=== PATIENT | female | born 1985 | race Caucasian/White ===

== ENCOUNTER → 2016-09-14 | Outpatient (CLI) | payer BC ==
[~2016-09-14] MED LIST: IBUP600T26 PO; IBUP80TA PO; LORTTAB5 PO; ORTHTAB6 PO; PERCOCET PO; PRENTAB9 PO; ZOFR4TAB3 PO
[2016-09-14 08:27] LABS: BASO % 0.1 % (0.0-1.0); EOS # 0.1 K/mm3 (0.0-0.50); LARGE UNSTAINED CELL # 0.1 K/mm3 (0.0-0.4); LARGE UNSTAINED CELL % 1.5 % (0.0-4.0); LYMPH # 1.5 K/mm3 (1.5-6.5); MEAN CORPUSCULAR HEMOGLOBIN 30.8 pg (27.0-33.0); MEAN CORPUSCULAR HGB CONC 34.8 g/dl (32.0-36.5); MEAN CORPUSCULAR VOLUME 88.3 fl (80.0-96.0); MONO # 0.3 K/mm3 (0.0-0.8); MONO % 3.6 % (0.0-5.0); NEUTROPHILS % 71.8 % (36.0-66.0); PLATELET COUNT, AUTOMATED 175 k/mm3 (150-450); RED CELL DISTRIBUTION WIDTH 12.2 % (11.5-14.5); WHITE BLOOD COUNT 6.9 K/mm3 (4.0-10.0)
[2016-09-14 09:30] LABS: CONTROL LINE INT CTR LINE PRESENT; HIV SCRN NEGATIVE (NEGATIVE); HIV SCRN1 NEGATIVE (NEGATIVE)
[2016-09-14 10:48] LABS: HBsAg Prenatal NEGATIVE (NEGATIVE)
== END | disposition home or self-care (01) ==
LOC: M LAB 07:52
PROVIDERS: ATTEND Obstetrics & Gynecology
DX: Z34.81 Encounter for supervision of other normal pregnancy, first trimester (principal); Z36 Encounter for antenatal screening of mother; Z3A.00 Weeks of gestation of pregnancy not specified

== ENCOUNTER → 2016-10-04 | Outpatient (CLI) | payer BC | END | disposition home or self-care (01) | LOC: M LAB 13:44 | PROVIDERS: ATTEND Obstetrics & Gynecology | DX: Z36 Encounter for antenatal screening of mother (principal); Z3A.00 Weeks of gestation of pregnancy not specified ==

== ENCOUNTER → 2016-11-02 | Outpatient (REF) | payer BC | LOC: M LAB REF 17:02 | PROVIDERS: ATTEND Specialist | DX: Z34.82 Encounter for supervision of other normal pregnancy, second trimester (principal); Z36 Encounter for antenatal screening of mother; Z3A.00 Weeks of gestation of pregnancy not specified ==

== ENCOUNTER → 2016-11-26 | Outpatient (CLI) | payer BC ==
--- NOTE | 2016-11-26 17:07 | REP ---
OB ULTRASOUND: Real-time sonographic evaluation of the gravid uterus is performed utilizing transabdominal and endovaginal technique. Cystic structure left ovary probably represents corpus luteum. Maximum diameter is 1.8 cm. There is a possible posterior succenturiate lobe of the placenta. There is a single living intrauterine gestation. The estimated gestational age is 20 weeks 1 days. EDC 04/14/2017. Today's measurements indicate appropriate growth. BPD 47 mm = 20 weeks 2 days, at the 55th percentile. HC 180 mm = 20 weeks 3 days, at the 60th percentile. AC 165 mm = 21 weeks 4 days, at the 82nd percentile. Femur length 32 mm = 19 weeks 6 days, at the 45th percentile. HC/AC ratio 1.09 within normal range. Estimated weight 375 grams at the 71st percentile. Cervix is closed and measures 5.0 cm in length. heart rate 149 beats per minute. SEEN/GROSSLY UNREMARKABLE Lateral ventricles Yes Posterior fossa Yes Upper lip Yes Four-chamber heart Yes LVOT Yes RVOT Yes Stomach Yes Cord insertion Yes Three vessel cord Yes Kidneys Yes Bladder Yes Spine Yes position: Transverse with head towards the maternal right side. Placenta: Anterior and grade 0 with no previa or abruption. Amniotic fluid: Within normal limits. Signed by Cosmo Ascencio MD 11/27/2016 09:39 A
== END ==
LOC: M RAD 15:21
PROVIDERS: ATTEND Specialist
DX: Z34.82 Encounter for supervision of other normal pregnancy, second trimester (principal); Z36 Encounter for antenatal screening of mother; Z3A.20 20 weeks gestation of pregnancy; N83.12 Corpus luteum cyst of left ovary

== ENCOUNTER → 2017-02-20 | Outpatient (CLI) | payer BC ==
[~2017-02-20] MED LIST changes: +BENA25CA4 PO; +IBUP1TAB7 PO; +ORTHTAB15 PO; -ORTHTAB6 PO; +PRENTAB40 PO; +TYLE500T78 PO; +VICO5TAB16 PO
[2017-02-20 08:54] LABS: BASO % 0.2 % (0.0-1.0); EOS # 0.1 K/mm3 (0.0-0.50); EOS % 0.7 % (0.0-3.0); LARGE UNSTAINED CELL # 0.2 K/mm3 (0.0-0.4); LARGE UNSTAINED CELL % 1.4 % (0.0-4.0); LYMPH # 2.6 K/mm3 (1.5-6.5); LYMPH % 20.5 % (24.0-44.0); MEAN CORPUSCULAR HEMOGLOBIN 31.1 pg (27.0-33.0); MEAN CORPUSCULAR HGB CONC 33.6 g/dl (32.0-36.5); MEAN CORPUSCULAR VOLUME 92.6 fl (80.0-96.0); MONO # 0.7 K/mm3 (0.0-0.8); MONO % 5.4 % (0.0-5.0); NEUTROPHILS # 8.6 K/mm3 (1.8-7.7); NEUTROPHILS % 71.8 % (36.0-66.0); PLATELET COUNT, AUTOMATED 234 k/mm3 (150-450); RED CELL DISTRIBUTION WIDTH 12.8 % (11.5-14.5)
== END ==
LOC: M LAB 07:06
PROVIDERS: ATTEND Specialist
DX: Z34.82 Encounter for supervision of other normal pregnancy, second trimester (principal); Z36 Encounter for antenatal screening of mother; Z3A.00 Weeks of gestation of pregnancy not specified

== ENCOUNTER → 2017-03-01 | Outpatient (CLI) | payer BC | LOC: M LAB 07:32 | PROVIDERS: ATTEND Specialist | DX: Z34.83 Encounter for supervision of other normal pregnancy, third trimester (principal); Z36 Encounter for antenatal screening of mother; Z3A.00 Weeks of gestation of pregnancy not specified ==

== ENCOUNTER → 2017-03-14 | Outpatient (REF) | payer BC | LOC: M LAB REF 17:07 | PROVIDERS: ATTEND Specialist | DX: Z34.83 Encounter for supervision of other normal pregnancy, third trimester (principal); Z36 Encounter for antenatal screening of mother; Z3A.00 Weeks of gestation of pregnancy not specified ==

== ENCOUNTER 2017-03-17 22:52 | Outpatient (CLI) | payer BC ==
[~2017-03-17 22:52] MED LIST changes: -BENA25CA4 PO; -IBUP1TAB7 PO; -PRENTAB40 PO; -TYLE500T78 PO; -VICO5TAB16 PO
[2017-04-01] MEDS ORDERED: TYLE500T78 PO (08:20)
[2017-04-01] MEDS ORDERED: PRENTAB40 PO (08:20)
[2017-04-06] MEDS ORDERED: VICO5TAB16 PO (13:18)
== END 2017-03-18 00:05 | disposition home or self-care (01) ==
LOC: M LDO 22:52
PROVIDERS: ATTEND Specialist
DX: O26.893 Other specified pregnancy related conditions, third trimester (principal); N89.8 Other specified noninflammatory disorders of vagina; O60.03 Preterm labor without delivery, third trimester; Z3A.36 36 weeks gestation of pregnancy

== ENCOUNTER 2017-04-06 07:09 | Inpatient (IN) | payer BC ==
[2017-04-06] VITALS (12 sets, daily range): BP systolic 101–144; BP diastolic 53–88
[~2017-04-06] VITALS: Ht 160 cm; Wt 79.0 kg
[~2017-04-06 07:09] MED LIST changes: +PRENTAB40 PO; +TYLE500T78 PO
[2017-04-06] MEDS ORDERED: BENA25CA4 PO (08:02)
[2017-04-06] MEDS ORDERED: LR 1,000 ML IV SCH (08:24)
[2017-04-06] MEDS ORDERED: LACTATED RINGER'S 1000 ML IV STA (08:24)
[2017-04-06] MEDS ORDERED: BICITRA 30ML SOLN UDC PO ONE (08:30)
[2017-04-06 08:39] LABS: MEAN CORPUSCULAR HEMOGLOBIN 30.1 pg (27.0-33.0); MEAN CORPUSCULAR HGB CONC 33.4 g/dl (32.0-36.5); MEAN CORPUSCULAR VOLUME 90.2 fl (80.0-96.0); RED CELL DISTRIBUTION WIDTH 12.9 % (11.5-14.5); WHITE BLOOD COUNT 15.6 K/mm3 (4.0-10.0)
[2017-04-06] MEDS: PRENATAL VITAMINS CHEWABLE TABLET PO SCH (09:00)
[2017-04-06] MEDS ORDERED: OXYTOCIN INJ 10 UNITS/ML VIAL (J2590) As Ordered ONE (09:24)
[2017-04-06] MEDS ORDERED: MORPHINE PRES-FREE INJ 10 MG/10 ML VIAL (J2274) As Ordered ONE (09:26)
[2017-04-06] MEDS ORDERED: NALOXONE INJ 0.4 MG/1 ML VIAL (J2310) IV PRN ×2 (09:38)
[2017-04-06] MEDS ORDERED: ONDANSETRON 4MG/2ML VIAL (J2405) IV PRN ×3 (09:38→11:15)
[2017-04-06] MEDS ORDERED: METOCLOPRAMIDE INJ 10MG/2ML VIAL (J2765) IV PRN (09:38)
[2017-04-06] MEDS ORDERED: ONDANSETRON 4MG/2ML VIAL (J2405) As Ordered ONE (10:04)
[2017-04-06] MEDS ORDERED: KETOROLAC 60 MG/2 ML VIAL (J1885) As Ordered ONE (10:28)
[2017-04-06] MEDS: LR 1,000 ML IV SCH ×2 (11:09→19:09)
[2017-04-06] MEDS ORDERED: IBUP1TAB7 PO (11:12)
[2017-04-06] MEDS ORDERED: diphenhydrAMINE INJ 50MG/ML VIAL (J1200) As Ordered ONE (11:12)
[2017-04-06] MEDS ORDERED: OXYTOCIN DRIP 30 UNITS in APPROPRIATE DILUENT 1 EA IV ONE (11:15)
[2017-04-06] MEDS ORDERED: fentaNYL 100 MCG/2 ML INJECTION (J3010) IV PRN (11:15)
[2017-04-06] MEDS ORDERED: KETOROLAC 30 MG/ML VIAL (J1885) IV PRN (11:15)
[2017-04-06] MEDS ORDERED: NALBUPHINE HCL 10 MG/ML AMP (J2300) IV PRN (11:15)
[2017-04-06] MEDS ORDERED: MEASLES,MUMPS,RUBELLA VACCINE INJ (MMR-II) (90707) SC SCH (11:15)
[2017-04-06] MEDS ORDERED: PERCOCET 5MG/325MG TAB PO PRN ×2 (11:15)
[2017-04-06] MEDS ORDERED: DOCUSATE SODIUM 100 MG CAP PO PRN (11:15)
[2017-04-06] MEDS ORDERED: RHOGAM 300 MCG (1500 IU) INJ (J2790) IM SCH (11:15)
[2017-04-06] MEDS ORDERED: diphenhydrAMINE INJ 50MG/ML VIAL (J1200) IV PRN (11:15)
[2017-04-06] MEDS ORDERED: MOM 30ML SUSPENSION UDC PO PRN (11:15)
[2017-04-06] MEDS ORDERED: MEPERIDINE INJ 25 MG/ML VIAL (J2175) IV PRN (11:15)
[2017-04-06] MEDS: NALBUPHINE HCL 10 MG/ML AMP (J2300) IV PRN ×2 (12:50→17:41)
--- NOTE | 2017-04-06 12:54 | HPE ---
DATE OF ADMISSION: 04/06/2017 REASON FOR ADMISSION: Labor. HISTORY OF THE PRESENT ILLNESS: Mrs. Riley is a 31-year-old 3, para 2 who presents at 38 weeks 6 days estimated gestational age by her last menstrual period, confirmed by a first trimester ultrasound, with complaints of contractions and leakage of fluid. Her course has been unremarkable. She initiated care in her first trimester and has been appropriate throughout. PAST MEDICAL HISTORY: None. PAST SURGICAL HISTORY: She has had two sections and cystoscopy. MEDICATIONS: - vitamins ALLERGIES: She has allergies to PINEAPPLE. OBSTETRICAL HISTORY: She is a 3, para 2. She has had one term section for breech presentation and one section at 35 weeks. SOCIAL HISTORY: She is . She lives with her and two children. Denies any alcohol, tobacco or drug use during her . PHYSICAL EXAMINATION: Vital signs are stable. She is afebrile. She has a category 1 heart rate tracing with contractions on tocometer. General appearance is well appearing. No acute distress. Her lungs are clear to auscultation bilaterally. Cardiovascular: Heart regular rate and rhythm. Her abdomen is gravid, nontender. Estimated weight 3500 grams. Cervical Exam: She is 2-3 cm dilated, 90% effaced, -2 station, grossly ruptured. LABORATORY: Her labs: Her blood type is O positive, antibody screen is negative, rubella is immune, RPR is nonreactive, hepatitis surface antigen is negative. HIV is negative. Hepatitis C is nonreactive. Chlamydia and gonorrhea screens are negative. She had a elevated 1-hour Glucola with a normal 3-hour glucose tolerance test. She is GBS negative. ASSESSMENT: 1. Mrs. Riley is a 31-year-old 3, para 2 at 38 weeks 6 days estimated gestational age with spontaneous rupture of membranes. 2. Reassuring status. 3. History significant for two prior sections. PLAN: 1. Admit to labor and delivery, CBC, RPR, type and screen. 2. Patient had previously been thoroughly counseled in regards to mode of delivery, and she has been counseled for a trial of labor after section versus an elective repeat section. After consultation, the patient desires to proceed with an elective repeat section and will proceed.
--- NOTE | 2017-04-06 13:06 | RO ---
DATE OF PROCEDURE: 04/06/2017 PREPROCEDURE DIAGNOSES: 1. Spontaneous rupture of membranes at 38 weeks 6 days estimated gestational age. 2. History of two prior sections, for a repeat section. POSTPROCEDURE DIAGNOSES: 1. Spontaneous rupture of membranes at 38 weeks 6 days estimated gestational age. 2. History of two prior sections, for a repeat section. PROCEDURE PERFORMED: Repeat section. SURGEON: Lesa Ma MD ASSISTANTS: Martin Coker MD ANESTHESIA: Spinal. ESTIMATED BLOOD LOSS: 500 mL. INTRAVENOUS FLUIDS: 900 mL of lactated Ringer solution. URINE OUTPUT: 200 mL. PREOPERATIVE ANTIBIOTICS: 2 grams of Ancef. OPERATIVE FINDINGS: Liveborn male . scores 8 and 9. Weight was 7 pounds 14 ounces, 3562 grams. SPECIMENS: Cord blood. DESCRIPTION OF OPERATION: After informed consent was obtained and written consent was reviewed, the patient was brought to the operating room where spinal anesthesia was placed. She was then placed in supine position with a left lateral tilt. A Hdz catheter was then placed and set to gravity. The patient was then prepped and draped in a normal sterile fashion. A time-out in the operating room was then performed, identifying the patient, procedure to be performed, as well as drug allergies. Anesthesia was then tested and deemed to be adequate. A Pfannenstiel skin incision was then made along the previous skin incision and this carried down to the underlying rectus fascia. The fascia was scored and this incision was extended bilaterally. The fascia was then dissected off the underlying rectus muscles both superiorly and inferiorly. The rectus muscles were in the midline. The peritoneum was then entered sharply. The vesicouterine peritoneum was then identified, tented and incised to create a bladder flap. The bladder blade was then placed to retract back the bladder. A curvilinear incision was then made in the lower uterine segment. This incision was extended. head was brought to the level of the incision atraumatically, followed by delivery of shoulder and corpus. Cord was clamped times two and was cut, and was taken over to the warmer with a good cry. Cord blood was then obtained. The placenta was then drained and delivered grossly intact. The uterus was then exteriorized and cleared of all clots and debris. The uterine incision was then closed in two layers using #0 Vicryl in the first layer in a running locking fashion, followed by a second layer for imbrication in a running nonlocking fashion. The abdomen was then suctioned. Uterus was returned to the patient's abdomen. It was re-inspected and noted to be hemostatic. The anterior peritoneum was then reapproximated with #3-0 Vicryl. The rectus muscles were reapproximated with #3-0 Vicryl. The fascia was then closed using #0 Vicryl in a running nonlocking fashion. The subcutaneous tissue was then irrigated and suctioned. Subcutaneous tissue was then reapproximated with #3-0 Vicryl. Several subdermal stitches were placed with #3-0 Vicryl, and the skin was closed with #4-0 Monocryl in a subcuticular fashion. The incision was then cleaned and dry. Mastisol was applied above and below the incision. Steri-Strips were applied over the incision. The incision was then dressed. The counts were correct. The patient was then taken to recovery in stable condition. The couple has decided to name their son, Christiano.
[2017-04-06] MEDS ORDERED: NORCO, ANEXSIA 5/325MG TABLET (HYDROcodone/ACETAMINOPHEN) PO PRN ×2 (13:15)
[2017-04-06] MEDS ORDERED: VICO5TAB16 PO (13:18)
[2017-04-06] MEDS: KETOROLAC 30 MG/ML VIAL (J1885) IV SCH ×2 (16:49→23:36)
[2017-04-07 02:00] VITALS: BP 107/60
[2017-04-07] MEDS: KETOROLAC 30 MG/ML VIAL (J1885) IV SCH (04:59)
[2017-04-07 06:20] VITALS: BP 124/66
[2017-04-07 06:44] LABS: MEAN CORPUSCULAR HEMOGLOBIN 31.1 pg (27.0-33.0); MEAN CORPUSCULAR HGB CONC 34.8 g/dl (32.0-36.5); MEAN CORPUSCULAR VOLUME 89.3 fl (80.0-96.0); RED CELL DISTRIBUTION WIDTH 12.7 % (11.5-14.5); WHITE BLOOD COUNT 12.3 K/mm3 (4.0-10.0)
[2017-04-07] MEDS: PRENATAL VITAMINS CHEWABLE TABLET PO SCH (08:30)
[2017-04-07 10:00] VITALS: BP 118/61
[2017-04-07] MEDS ORDERED: IBUPROFEN 800 MG TAB PO SCH (13:00)
--- NOTE | 2017-04-08 07:21 | DSES ---
DATE OF ADMISSION: 04/06/2017 DATE OF DISCHARGE: 04/07/2017 31-year-old 3 now para 2-1-0-3, estimated date of delivery 04/14/2017 who presented at 39 weeks 6 days with reports of contractions and rupture of membranes. History is significant for two previous cesareans. Repeat section was performed 04/06/[address] Ma with delivery of viable male child, 7 pounds 14 ounces. Michael feels well. She reports adequate pain management with p.o. medications. Out of bed independently, voiding and passing flatus. Vital signs are stable 97.7 and 124/66. CBC 12.3 white cells, hemoglobin and hematocrit 9.9 and 28.4, and platelets are 228. Breasts are soft. Nipples are intact. Fundus is firm, nontender. Wound is well approximated without edema, dehiscence, signs and symptoms of infection. Steri-Strips are in place. Lochia rubra is light without odor and legs are negative. ASSESSMENT: Postop day 1, okay for discharge per consult with Dr. Ma. PLAN: Routine care, signs and symptoms of infection and warnings were reviewed. Continue vitamins. Prescriptions for ibuprofen and Vicodin were sent by Dr. Ma. Return to the office in 2 weeks and 6 weeks and call p.r.n.
== END 2017-04-07 12:15 | disposition home or self-care (01) | DRG 540 ==
LOC: M LDO 07:09 → M LDI 07:41 → M RR INP 10:58 → M OBS 12:36
PROVIDERS: ADMIT Obstetrics & Gynecology; ATTEND Advanced Practice Midwife
PROC: 10D00Z1 Extraction of Products of Conception, Low, Open Approach (ICD-10-PCS; principal; 2017-04-06 09:52)
DX: O75.82 Onset (spontaneous) of labor after 37 completed weeks of gestation but before 39 completed weeks gestation, with delivery by (planned) cesarean section (principal); O34.219 Maternal care for unspecified type scar from previous cesarean delivery; Z37.0 Single live birth; Z3A.38 38 weeks gestation of pregnancy; Z79.899 Other long term (current) drug therapy; Z91.018 Allergy to other foods

== ENCOUNTER → 2017-07-23 | Outpatient (REF) | payer BC ==
[~2017-07-23] MED LIST changes: +BENA25CA4 PO; +IBUP1TAB7 PO; +VICO5TAB16 PO
== END ==
LOC: M SFHCLERA 17:32
PROVIDERS: ATTEND Nurse Practitioner Family
DX: R30.0 Dysuria (principal)

== ENCOUNTER → 2017-10-14 | Outpatient (REF) | payer BC | LOC: M SFHCLERA 17:44 | DX: J02.9 Acute pharyngitis, unspecified (principal) ==

== ENCOUNTER → 2018-05-06 | Outpatient (REF) | payer BC ==
[2018-05-08 14:17] LABS: HPV HYBRID CAPTURE II Negative (Negative)
== END ==
LOC: M LAB REF 13:31
DX: Z12.4 Encounter for screening for malignant neoplasm of cervix (principal)
CPT/HCPCS: G0123

== ENCOUNTER 2019-05-25 01:05 | Emergency (ER) | payer BC ==
[~2019-05-25] VITALS: Ht 160 cm; Wt 77.3 kg
[2019-05-25 01:05] VITALS: BP 157/94
[~2019-05-25 01:05] MED LIST changes: +ORTH1TAB9 PO; -ORTHTAB15 PO; -VICO5TAB16 PO; +VICO5TAB17 PO; +ZOFR4TAB14 PO; -ZOFR4TAB3 PO
[2019-05-25] MEDS ORDERED: OCUF0.25 OD (01:33)
== END 2019-05-25 01:41 | disposition home or self-care (01) ==
LOC: M ED 01:05
DX: H10.31 Unspecified acute conjunctivitis, right eye (principal)

== ENCOUNTER → 2019-08-14 | Outpatient (REF) | payer BC ==
[~2019-08-14] MED LIST changes: +ACET500T15 PO; +IBUP-1114 PO; +OCUF0.25 OD; +TRI-TAB16 PO
== END ==
LOC: M SFHCLERA 17:35
PROVIDERS: ATTEND Physician Assistant
DX: J02.9 Acute pharyngitis, unspecified (principal)

== ENCOUNTER 2019-09-04 06:01 | Day surgery (SDC) | payer BC, OTHER, SELFPAY ==
[~2019-09-04] VITALS: Ht 160 cm; Wt 79.3 kg
[~2019-09-04 06:01] MED LIST changes: +LR 1,000 ML IV ONE
[2019-09-04 06:30] LABS: HEMATOCRIT 46.8 % (36.0-47.0); HEMOGLOBIN 14.9 g/dl (12.0-15.5); MEAN CORPUSCULAR HEMOGLOBIN 29.3 pg (27.0-33.0); MEAN CORPUSCULAR HGB CONC 31.8 g/dl (32.0-36.5); MEAN CORPUSCULAR VOLUME 91.9 fl (80.0-96.0); PLATELET COUNT, AUTOMATED 195 10^3/uL (150-450); RED BLOOD COUNT 5.09 10^6/uL (4.00-5.40)
[2019-09-04] MEDS ORDERED: SCOPOLAMINE 1MG TRANSDERMAL PATCH As Ordered ONE (07:04)
[2019-09-04] MEDS ORDERED: BUPIVACAINE HCL 0.25% 10 ML VIAL As Ordered ONE (07:07)
[2019-09-04] MEDS ORDERED: fentaNYL 100 MCG/2 ML INJECTION (J3010) As Ordered ONE ×2 (07:09→08:45)
[2019-09-04] MEDS ORDERED: dexameTHASONE 4 MG/ML 1ML VIAL (J1100) As Ordered ONE (07:09)
[2019-09-04] MEDS ORDERED: ONDANSETRON 4MG/2ML VIAL (J2405) As Ordered ONE (07:09)
[2019-09-04] MEDS ORDERED: MIDAZOLAM INJ 2 MG/2 ML VIAL (J2250) As Ordered ONE (07:09)
[2019-09-04] MEDS ORDERED: METOCLOPRAMIDE INJ 10MG/2ML VIAL (J2765) As Ordered ONE (07:09)
[2019-09-04] MEDS ORDERED: SCOPOLAMINE 1MG TRANSDERMAL PATCH TOP SCH (07:15)
[2019-09-04] MEDS ORDERED: LIDOCAINE 2% INJ 100 MG/5 ML SDV (FOR ANES.) As Ordered ONE (07:16)
[2019-09-04] MEDS ORDERED: ROCURONIUM BROMIDE 50 MG/5 ML VIAL As Ordered ONE (07:16)
[2019-09-04] MEDS ORDERED: propofoL 200 MG/20 ML VIAL As Ordered ONE ×2 (07:16→08:11)
[2019-09-04] MEDS ORDERED: KETOROLAC 60 MG/2 ML VIAL (J1885) As Ordered ONE (07:21)
[2019-09-04] MEDS ORDERED: SUGAMMADEX SODIUM 500 MG/5 ML VIAL (BRIDION) As Ordered ONE (07:58)
[2019-09-04] MEDS ORDERED: KETAMINE HCL 200 MG/20 ML VIAL As Ordered ONE (08:08)
[2019-09-04] MEDS ORDERED: OXYC1TAB23 PO (09:13)
[2019-09-04] MEDS ORDERED: IBUP-1022 PO (09:14)
[2019-09-04] MEDS ORDERED: LR 1,000 ML IV SCH ×2 (09:15)
[2019-09-04] MEDS ORDERED: ONDANSETRON 4MG/2ML VIAL (J2405) IV PRN (09:15)
[2019-09-04] MEDS ORDERED: PERCOCET 5MG/325MG TAB PO PRN (09:15)
[2019-09-04] MEDS ORDERED: fentaNYL 100 MCG/2 ML INJECTION (J3010) IV PRN (09:15)
[2019-09-04] MEDS ORDERED: oxyCODONE 5MG TAB PO PRN (09:15)
[2019-09-04 10:25] VITALS: BP 139/80
--- NOTE | 2019-09-04 20:28 | RO ---
DATE OF PROCEDURE: 09/04/2019 PREPROCEDURE DIAGNOSIS: Undesired fertility, recurrent, right ovarian cyst with right ovarian pain. POSTPROCEDURE DIAGNOSIS: Undesired fertility, recurrent right ovarian cyst with right ovarian pain. PROCEDURE: Right salpingo-oophorectomy, left salpingectomy. SURGEON: Tesfaye Salgado MD CLIMATOLOGIST: ANESTHESIA: General endotracheal. ESTIMATED BLOOD LOSS: 10 mL. URINE OUTPUT: 50 mL. FINDINGS: Normal pelvis, including uterus, fallopian tube, and ovaries. Normal upper abdomen. DESCRIPTION OF PROCEDURE: The patient was taken to the operating room where general endotracheal anesthesia was induced. She was prepped and draped in a sterile fashion in the dorsal lithotomy position. A Hdz catheter was placed. A sponge stick was placed in the vagina to use as a manipulator. Marcaine was placed in incision sites in the abdomen. A periumbilical incision was made with a scalpel. A Veress needle was placed through this incision while tenting up on the skin of the abdomen. Intraabdominal location of the Veress needle was assessed with the use of a saline-filled syringe. Pneumoperitoneum was created. The Veress needle was removed. 11 mm trocar using Visiport was inserted through this incision. Two 5 mm suprapubic ports were placed under direct visualization. An 11 mm scope with camera was used to visualize the abdomen and pelvis. The right fallopian tube was grasped and elevated. A LigaSure device was used to coagulate and incise the IP ligament and broad ligament attachments to the tube. The utero-ovarian ligament was coagulated and incised. On the left side, the left fallopian tube was grasped and broad ligament attachments to the left tube were coagulated and incised. The specimens included the right ovary and both fallopian tubes, were placed in an Endo Catch bag and removed through the umbilicus. All instruments were removed. The pneumoperitoneum was released. The fascia of the umbilical port was closed with a single interrupted suture of #0 Vicryl. The skin was closed with #4-0 Monocryl subcuticular sutures. Sponge, instrument, and needle counts were correct. The patient was extubated and went to recovery in stable condition.
== END 2019-09-04 10:27 | disposition home or self-care (01) ==
LOC: M SDC 06:01
PROVIDERS: ATTEND Specialist
DX: Z30.2 Encounter for sterilization (principal); N83.201 Unspecified ovarian cyst, right side; K21.9 Gastro-esophageal reflux disease without esophagitis; F41.9 Anxiety disorder, unspecified; G43.909 Migraine, unspecified, not intractable, without status migrainosus; F17.218 Nicotine dependence, cigarettes, with other nicotine-induced disorders; Z79.899 Other long term (current) drug therapy; Z88.8 Allergy status to other drugs, medicaments and biological substances; Z91.018 Allergy to other foods
CPT/HCPCS: 36415; 58661; 81025; 85027; 88305; J1100; J1885; J2250; J2405; J2765; J3010

== ENCOUNTER → 2020-03-25 | Outpatient (CLI) | payer OTHER ==
[~2020-03-25] MED LIST changes: +IBUP-1022 PO; -LR 1,000 ML IV ONE; +OXYC1TAB23 PO
== END ==
LOC: M LABSMTC 10:30
PROVIDERS: ATTEND Pediatrics
DX: Z20.828 Contact with and (suspected) exposure to other viral communicable diseases (principal); Z11.59 Encounter for screening for other viral diseases
CPT/HCPCS: C9803; U0002

== ENCOUNTER → 2020-05-12 | Outpatient (CLI) | payer OTHER | LOC: M LABSMTC 11:43 | PROVIDERS: ATTEND Anesthesiology | DX: Z01.812 Encounter for preprocedural laboratory examination (principal); Z20.828 Contact with and (suspected) exposure to other viral communicable diseases | CPT/HCPCS: C9803; U0003 ==

== ENCOUNTER 2020-05-17 06:14 | Day surgery (SDC) | payer OTHER ==
[~2020-05-17] VITALS: Ht 160 cm; Wt 78.9 kg
[2020-05-17] MEDS ORDERED: LIDOCAINE 1% MDV 20ML VIAL ONE (06:15)
[2020-05-17] MEDS ORDERED: dexameTHASONE 10MG/1ML VIAL PRES.FREE (J1100 PER 1MG) ONE (06:15)
[2020-05-17] MEDS ORDERED: ROPIvacaine 0.5% 30ML INJECTION (J2795 PER 1MG) ONE (06:15)
[2020-05-17] MEDS ORDERED: ceFAZolin 2 GM/D5W 50 ML IV BAG (J0690 PER 500MG) As Ordered ONE (06:37)
[2020-05-17] MEDS ORDERED: MIDAZOLAM INJ 2MG/2ML VIAL (J2250 PER 1MG) As Ordered ONE ×2 (06:45→08:04)
[2020-05-17] MEDS ORDERED: fentaNYL 100 MCG/2 ML INJECTION (J3010) As Ordered ONE (06:45)
[2020-05-17] MEDS ORDERED: ceFAZolin SOD 2 GM in IV 1 EA IV ONE (07:00)
[2020-05-17] MEDS ORDERED: LR 1,000 ML IV ONE (07:00)
[2020-05-17] MEDS ORDERED: SCOPOLAMINE 1MG TRANSDERMAL PATCH As Ordered ONE (07:12)
[2020-05-17] MEDS ORDERED: EPINEPHrine 1MG/ML INJ 30ML MD-VIAL As Ordered ONE (07:14)
[2020-05-17] MEDS: fentaNYL 100 MCG/2 ML INJECTION (J3010) IV SCH ×2 (07:17→07:22)
[2020-05-17] MEDS: MIDAZOLAM INJ 2MG/2ML VIAL (J2250 PER 1MG) IV SCH ×2 (07:17→07:19)
[2020-05-17] MEDS ORDERED: SCOPOLAMINE 1MG TRANSDERMAL PATCH TOP ONE (07:45)
[2020-05-17] MEDS ORDERED: LIDOCAINE 2% 100MG/5ML SDV (FOR ANES.) As Ordered ONE (08:04)
[2020-05-17] MEDS ORDERED: propofoL 200 MG/20 ML VIAL As Ordered ONE (08:04)
[2020-05-17] MEDS ORDERED: ROCURONIUM BROMIDE 50 MG/5 ML VIAL As Ordered ONE (08:04)
[2020-05-17] MEDS ORDERED: fentaNYL 250 MCG/5 ML INJECTION (J3010) As Ordered ONE (08:04)
[2020-05-17] MEDS ORDERED: METOCLOPRAMIDE INJ 10MG/2ML VIAL (J2765 PER 1) As Ordered ONE (08:04)
[2020-05-17] MEDS ORDERED: ONDANSETRON 4MG/2ML VIAL As Ordered ONE (08:04)
[2020-05-17] MEDS ORDERED: DESFLURANE 240 ML INHALANT As Ordered ONE (08:04)
[2020-05-17] MEDS ORDERED: dexameTHASONE 4 MG/ML 1ML VIAL (J1100 PER 1MG) As Ordered ONE (08:05)
[2020-05-17] MEDS ORDERED: SUGAMMADEX SODIUM 500 MG/5 ML VIAL (BRIDION) As Ordered ONE (08:55)
[2020-05-17] MEDS ORDERED: oxyCODONE 5MG TAB PO PRN (09:30)
[2020-05-17] MEDS ORDERED: PERCOCET 5MG/325MG TAB PO PRN (09:30)
[2020-05-17] MEDS ORDERED: MORPHINE 4 MG/ML 1ML VIAL/SYRINGE (J2270) IV PRN (09:30)
[2020-05-17] MEDS ORDERED: LR 1,000 ML IV SCH ×2 (09:30)
[2020-05-17] MEDS ORDERED: fentaNYL 100 MCG/2 ML INJECTION (J3010) IV PRN (09:30)
[2020-05-17] MEDS ORDERED: ONDANSETRON 4MG/2ML VIAL IV PRN ×2 (09:30)
[2020-05-17] MEDS ORDERED: ACETAMINOPHEN TAB 650MG DOSE (2X325MG) PO PRN (09:30)
[2020-05-17 10:55] VITALS: BP 124/78
--- NOTE | 2020-05-27 10:34 | RO ---
DATE OF OPERATION: 05/17/2020 PREOPERATIVE DIAGNOSIS: Right shoulder instability. POSTOPERATIVE DIAGNOSIS: Right shoulder instability. PLANNED PROCEDURE: Right shoulder arthroscopic stabilization. PROCEDURE PERFORMED: Right shoulder arthroscopic stabilization. SURGEON: Power Hicks MD POLISHER EYEGLASS FRAMES: . TYPE OF ANESTHETIC: Preoperative block and general anesthesia. OPERATIVE PREAMBLE: This is a 34 -year-old female who had a fall. She complained about pain and weakness, instability sensations of her right shoulder. MRI revealed anterior and posterior labral tears. She was seen in preoperative holding, marked her right upper extremity and reiterated the surgical. She wished to proceed. OPERATIVE REPORT: The patient was brought to the operating theater; she had been administered preoperative block for the right upper extremity. She was given general anesthetic. The patient was administered 2 gm IV Ancef. She was placed in right lateral decubitus. All bony prominences were padded. SCDs were deployed. Axillary roll was placed. Beanbag was inflated. Limb was prepped and draped in usual sterile fashion with Chlorhexidine based prep solution, over 3 minutes prep solution drying time prior to draping. The patients upper extremity was placed into traction set up with arm in 45 degrees abduction and 10 pounds of traction. Preoperative time out was performed to confirm the site, the patient and surgery. I began by inserting a scope through standard posterior portal. I inserted through percutaneous inside-out spinal needle localization technique with 7 mm cannula just posterior to the biceps tendon and then one 8.25 mm cannula inferior to this, staying above subscapularis tendon in rotator interval. I performed thorough diagnostic arthroscopy. Cartilage in the glenoid and humeral head was normal. Biceps root appeared normal. Biceps itself was normal, no evidence of fraying, longitudinal tearing or synovitis. Rotator interval was normal as was subscapularis and undersurface of the rest of the rotator cuff. Bald spot was normal, no Hill-Sachs deformity. Inferior axillary recess was normal without evidence of loose body. Anterior labrum was slightly down on the anterior aspect of the glenoid. There was obvious crack from about 3 o'clock to 5 o'clock position at the anterior inferior glenoid. This was did not extend all the way to 6 o'clock or inferiorly. Switching stick was then used to insert another 8.25 mm cannula posteriorly. Arthroscope was switched to the anterior viewing portal. Posterior labrum was gently probed. There were no obvious cracks or fraying of posterior labrum. This appeared normal with probing. Arthroscope was then switched back to the standard posterior viewing portal. While inserting the anterior inferior 8.25 mm cannula the dilator unfortunately scuffed the cartilage right to the middle of the glenoid at the normal bare area. Small cartilage flap was then gently debrided for size of 4 mm or less to stable margins. The elevator was then brought in and the anterior inferior labrum was then elevated from 3 to 5 o'clock. Shaving instrument was then used to freshen up the anterior inferior surface of the glenoid. Small ring curet was brought in to elevate a small about millimeter rim at the anterior inferior glenoid area as well as to remove a very small segment of cartilage from the proposed labral repair. Labrum was elevated so that it floated up into appropriate position. Arthrex 25 degree curved to right SutureLasso passing instrument was then used anterior inferior labrum. I then shuttled labral tape in a locking-loop configuration. I then drilled for the 2.9 mm BioComposite PushLock in this area to perform anterior and posterior capsular shift with anterior to posterior capsular shift. Labral tapes were then inserted into the anchor and anchor tapped into position, sutures cut short using knotless technique. I then used the same technique at the 4 o'clock position for a two anchor repair. The glenoid was prepared prior to fixing the tear. When elevating the labrum there was an obvious crack in an area that the instrument fell into indicating an anterior inferior Bankart tear. I took fluoroscopy picture and saved that to arthroscopy system. I then placed the scope in the subacromial space. I removed the cannulas. I performed a thorough bursectomy. There was no obvious down sloping to the acromion. CA ligament had a small amount of irritation and rotator cuff was thoroughly probed to assure no tears. The arthroscope was withdrawn. The wounds were cleaned with wet-to-dry dressing followed by closure with interrupted 3-0 Monocryl sutures and Steri-Strips, Adaptic, 4 x 8 gauze and ABD was then applied with cloth tape over top and the patients upper extremity placed into a sling. The patient was awoken from general anesthetic, transferred off the operating table and taken to postanesthetic unit in stable condition. All sponge, instrument and needle counts were correct. Estimated blood loss 50 mL. PLAN: The patient is to remain in a sling for the first 4-6 weeks but then can start pendulum exercises as well as hand, wrist and elbow exercises. The patient is to be discharged home according to day surgery criteria. Follow up in the office in 2 weeks time. They can change the dressing on postop day 1 but no showering or tub for the first 2 weeks and they will follow the standard rehabilitation protocol for arthroscopic anterior inferior labral stabilization. EILEEN
== END 2020-05-17 11:05 | disposition home or self-care (01) ==
LOC: M SDC 06:14
PROVIDERS: ATTEND Orthopaedic Surgery Sports Medicine
DX: M25.311 Other instability, right shoulder (principal); Z91.018 Allergy to other foods; Z88.8 Allergy status to other drugs, medicaments and biological substances
CPT/HCPCS: 29806; 64415; C1713; J0690; J1100; J2250; J2405; J2765; J2795; J3010

== ENCOUNTER 2020-09-24 17:04 | Emergency (ER) | payer OTHER ==
[~2020-09-24] VITALS: Ht 160 cm; Wt 86.2 kg
--- OUTSIDE RECORDS SUMMARY | 2020-09-24 17:13 | CCD | Continuity of Care Document ---
Author Author Michael [employer]OSCO [employer] SUPERVISOR Organization Unknown Address [address] [place] [address] [place] [address] Phone [phone] Care Team Providers Care Customer Data Technician Name Role Phone [employer] [phone] Problems Description No Information Available Social History Type Date Description Comments Sex Unknown ETOH Use Occasionally consumes alcohol Tobacco Use Start: Unknown End: Unknown Patient is a former smoker Tobacco Use Start: Unknown The patient has never vaped Smoking Status Reviewed: 07/11/20 The patient has never vaped Allergies, Adverse Reactions, Alerts Description No Known Drug Allergies Medications Active Medications SIG Qnty Indications Ordering Provide r Date Tylenol Extra Strength 500mg Table ts 2 at 4:30p Unknown Ibuprofen 200 200mg Tablets 4@ noon per package instructions Unknown Immunizations Description No Information Available Vital Signs Date Vital Result Comment 07/11/2020 5:09pm BP Systolic 126 mmHg BP Diastolic 90 mmHg Heart Rate 84 /min Respiratory Rate 16 /min O2 % BldC Oximetry 97 % Body Temperature 98.4 F Weight 175.00 lb Height 63 inches 5'3" BMI (Body Mass Index) 31.0 kg/m2 Pain Level 4 Results Description No Information Available Procedures Description No Information Available Medical Devices Description No Information Available Encounters Type Date Location Provider Dx Diagnosis Office Visit 07/11/2020 5:35p Main Office Elaina Orosco NP J06. 9 Acute upper respiratory infection, unspecified Z20.828 Contact w and exposure to ot h viral communicable diseases Assessments Date Code Description Provider 07/11/2020 J06.9 Acute upper respiratory infectio n, unspecified Elaina Orosco NP 07/11/2020 Z20.828 Contact with and (aviles spected) exposure to other viral communicable diseases Elaina Orosco NP Plan of Treatment 07/11/2020 - Elaina Orosco NP* J06.9 Acute upper respiratory infection, unspecified* Comments:* tested for COVID-19 today via [facility], results were reported as negativelikely other viral etiology. infectious course & use of proper protective equipment, adequate handwashing, wearing a mask & keeping 6+ feet distance from others reviewed with patient. advised supportive care, rest/time/fluidsf/u PRNpatient v/u & agrees to plan * Z20.828 Contact with and (suspected) exposure to other viral communicable diseases* Comments:* tested for COVID-19 today via [facility], results were reported as negativeinfectious course & use of proper protective equipment, adequate handwashing, wearing a mask & keeping 6+ feet distance from others reviewed with patient. advised supportive care, rest/time/fluidsf/u PRNpatient v/u & agrees to plan Functional Status Description No Information Available Mental Status Description No Information Available Referrals Description No Information Available
--- OUTSIDE RECORDS SUMMARY | 2020-09-24 17:13 | CCD ---
Author Author [facility] Organization [facility] Address Unknown Phone Unavailable Care Team Providers Care Forest Botany Instructor Name Role Phone Percy Hicks MD Unavailable Unavailable Percy Hicks MD Unavailable Unavailable MollisonPercy MD Unavailable Unavailable MollisonPercy MD Unavailable Unavailable MollisonPercy MD Unavailable Unavailable MollisonPercy MD Unavailable Unavailable MollisonPercy MD Unavailable Unavailable MollisonPercy MD Unavailable Unavailable MollisonPercy MD Unavailable Unavailable MollisonPercy MD Unavailable Unavailable MollisonPercy MD Unavailable Unavailable MollisonPercy MD Unavailable Unavailable MollisonPercy MD Unavailable Unavailable MollisonPercy MD Unavailable Unavailable MollisonPercy MD Unavailable Unavailable MollisonPercy MD Unavailable Unavailable MollisonPercy MD Unavailable Unavailable MollisonPercy MD Unavailable Unavailable MollisonPercy MD Unavailable Unavailable MollisonPercy MD Unavailable Unavailable MollisonPercy MD Unavailable Unavailable AbdifatahisonPercy MD Unavailable Unavailable Nuno, Elaina NURSING EDUCATION CONSULTANT Unavailable Unavailable Nuno, Elaina NURSING EDUCATION CONSULTANT Unavailable Unavailable Nuno, Elaina NURSING EDUCATION CONSULTANT Unavailable Unavailable Nuno, Elaina NURSING EDUCATION CONSULTANT Unavailable Unavailable Nuno, Elaina NURSING EDUCATION CONSULTANT Unavailable Unavailable Nuno, Elaina NURSING EDUCATION CONSULTANT Unavailable Unavailable Nuno, Elaina NURSING EDUCATION CONSULTANT Unavailable Unavailable Nuno, Elaina NURSING EDUCATION CONSULTANT Unavailable Unavailable Nuno, Elaina NURSING EDUCATION CONSULTANT Unavailable Unavailable Nuno, Elaina NURSING EDUCATION CONSULTANT Unavailable Unavailable Nuno, Elaina NURSING EDUCATION CONSULTANT Unavailable Unavailable Re-disclosure Warning The records that you are about to access may contain information from federally-assisted alcohol or drug abuse programs. If such information is present, then the following federally mandated warning applies: This information has been disclosed to you from records protected by federal confidentiality rules (42 CFR part 2). The federal rules prohibit you from making any further disclosure of this information unless further disclosure is expressly permitted by the written consent of the person to whom it pertains or as otherwise permitted by 42 CFR part 2. A general authorization for the release of medical or other information is NOT sufficient for this purpose. The Federal rules restrict any use of the information to criminally investigate or prosecute any alcohol or drug abuse patient.The records that you are about to access may contain highly sensitive health information, the redisclosure of which is protected by Article 27-F of the [facility] Public Health law. If you continue you may have access to information: Regarding HIV / AIDS; Provided by facilities licensed or operated by the [facility] Office of Mental Health; or Provided by the [facility] Office for People With Developmental Disabilities. If such information is present, then the following [facility] mandated warning applies: This information has been disclosed to you from confidential records which are protected by state law. State law prohibits you from making any further disclosure of this information without the specific written consent of the person to whom it pertains, or as otherwise permitted by law. Any unauthorized further disclosure in violation of state law may result in a fine or detention sentence or both. A general authorization for the release of medical or other information is NOT sufficient authorization for further disc losure. Allergies and Adverse Reactions Type Description Substance Reaction Status Data Source(s ) pineapple pineapple pineapple Hives Active eCW1 ([facility]) pineapple pineapple pineapple Hives Active eCW1 ([facility]) Drug allergy Elonela Leonela Hives Active eCW1 ([facility]) Family History Family Member Name Family Member Gender Family Member Status Date o f Status Description Data Source(s) Unknown Male Problem MEDENT ([facility]) Unknown Unknown Problem MEDENT ([facility], ) Unknown Unknown Problem MEDENT ([facility], ) Unknown Unknown Problem MEDENT ([facility]) Unknown Unknown Problem MEDENT [facility] Unknown Unknown Problem MEDENT ([facility], ) Unknown Unknown Problem MEDENT ([facility], ) Unknown Unknown Problem MEDENT ([facility], ) Unknown Unknown Problem MEDENT ([facility], ) PGF; at 62 Encounters Encounter Providers Location Date Indications Data Source(s ) Outpatient Attender: Elaina scott 07/11/2020 04:35:00 PM EST MEDENT ([facility] Office Visit Attender: Power Freire/[place]/Zacarias/Re indl 06/27/2020 08:10:00 AM EST MEDENT ([facility] Outpatient Attender: Power Freire/[place]/Zacarias/Re indl 12/23/2019 09:30:00 AM EDT MEDENT ([facility]) [address] [address] 11/07/2019 12:00:00 AM EDT eCW1 ([facility]) [address] [address] 09/18/2019 12:00:00 AM EST eCW1 [facility]) [address] [address] 09/04/2019 12:00:00 AM EST eCW1 ([facility]) [facility] [address] [place] [phone] 08/15/2019 12:00:00 AM EST eCW1 ([facility]) [facility] [address] [place] [phone] 08/14/2019 12:00:00 AM EST eCW1 ([facility]) [address] [address] 08/10/2019 12:00:00 AM EST eCW1 ([facility]) [address] [address] 07/28/2019 12:00:00 AM EST eCW1 ([facility]) Medications Medication Brand Name Start Date Product Form Dose Route Admi nistrative Instructions Pharmacy Instructions Status Indications Reaction Description Data Source(s) Acetaminophen 325 MG / Oxycodone Hydrochloride 5 MG Or al Tablet Oxycodone-Acetaminophen 05/09/2020 12:00:00 AM EDT ORAL completed MEDENT ([facility] ) Clindamycin 300 MG Oral Capsule Clindamycin HCl 300 MG Clind amycin HCl 300 MG 11/07/2019 12:00:00 AM EDT active 1 capsule [facility] 5-325 mg 09/04/2019 12:00:00 AM EST tablet 15 TAKE ONE TABLET BY MOUTH THREE TIMES A DAY NEEDED FOR PAIN MAXIMUM DAILY DOSE = 3 TAKE ONE TABLET BY MOUTH THREE TIMES A DAY NEEDED FOR PAIN MAXIMUM DAILY DOSE = 3 SOLD: 09/04/2019 [facility] 600 mg 09/04/2019 12:00:00 AM EST tablet 30 TAKE ONE TABLET BY MOUTH THREE TIMES A DAY FOR PAIN WITH FOOD TAKE ONE TABLET BY MOUTH THREE TIMES A D AY FOR PAIN WITH FOOD SOLD: 09/04/2019 [facility] benzonatate 200 MG Oral Capsule BENZONATATE 08/15/2019 12:00:00 AM EST capsule 30 TAKE ONE CAPSULE BY MOUTH THREE TIMES A DAY FOR 10 DAYS TAKE ONE CAPSULE BY MOUTH THREE TIMES A DAY FOR 10 DAYS SOLD: 08/16/2019 [facility] benzonatate 200 MG Oral Capsule Benzonatate 200 MG Benzonata te 200 MG 08/14/2019 12:00:00 AM EST active 1 capsul e [facility]) Polytrim 16151-2.1 UNIT/ML UNK 08/14/2019 12:00:00 AM EST suspended 1 gtt ou eCW1 ([facility]) Polymyxin B 35496 UNT/ML / Trimethoprim 1 MG/ML Ophthalmic Solution [Polytrim] Polytrim 20073-9.1 UNIT/ML Polytrim 27284-7.1 UNIT/ML 08/14/2019 12:00:00 AM EST active 1 gtt ou eCW1 ([facility]) Benzonatate 200 MG UNK 08/14/2019 12:00:00 AM EST suspended 1 capsule eCW1 ([facility]) benzonatate 200 MG Oral Capsule Benzonatate 200 MG Benzonata te 200 MG 08/14/2019 12:00:00 AM EST active 1 capsu le eCW1 ([facility]) 0.18/0.215/0.25 mg-35 mcg (28) 02/27/2019 12:00:00 AM EDT ta blet 28 TAKE ONE TABLET BY MOUTH EVERY DAY TAKE ONE TABLET BY MOUTH EVERY DAY SOLD: 08/22/2019 [facility] Insurance Providers Payer name Policy type / Coverage type Policy ID Covered constitution party ID Covered constitution party's relationship to mancera Policy Mancera Plan Information [facility] CHO[facility] PL[facility] [id number] SP [id number] [facility] CHOICE PLUS [id number] SP [id number] SELF PAY ONLY [id number] [employer] [place] [id number] HU2 [id number] [place]/307 [id number] HU2 [id number] [place]/307 [id number] HU2 [id number] [employer] [place] [id number] SP [id number] [place] [place] 302/307 [id number] [id number] [place] Commercial [id number] Family Dependent [id number] [employer] Health Maintenance Organization (HMO) [id number] Family Dependent [id number] [place]/307 [id number] HU2 [id number] [place]/307 [id number] HU2 [id number] [employer] Health Maintenance Organization (HMO) [id number] Family Dependent [id number] [place] [place] 302/307 [id number] HU2 [id number] [place]PO 302/307 [id number] HU2 [id number] [employer] B [id number] P [id number] [employer] [place] PPO 302/307 [id number] HU2 [id number] [employer] Health Maintenance Organization (HMO) Family Dependent [place] PPO 302/307 [id number] HU2 [id number] [employer] B [id number] P [id number] [employer] Health Maintenance Organization (HMO) Family Dependent [employer] BC-BS PPO 306 [id number] HU2 [id number] BC[place] OF [place] 306/806 [id number] SP [id number] [place] 306/806 [id number] SP [id number] [facility] MEDICAL CLAIMS [id number] SP [id number] Surgeries/Procedures Procedure Description Date Indications Data Source(s) Arthroscopy,Shoulder Surgical Capsulorrhaphy 0 12:00:00 AM EDT MEDENT ([facility], ) X-Ray Shoulder Complete 12/23/2019 12:00:00 AM EDT MEDENT ([facility]) X-Ray Shoulder Complete 12/23/2019 12:00:00 AM EDT MEDENT ([facility]) RADEX SHOULDER COMPLETE MINIMUM 2 VIEWS 12/23/2019 12: 00:00 AM EDT MEDENT ([facility]) RADEX SHOULDER COMPLETE MINIMUM 2 VIEWS 12/23/2019 12: 00:00 AM EDT MEDENT ([facility]) STREP A ASSAY W/OPTIC 08/14/2019 12:00:00 AM EST eCW1 [facility]) Results ID Date Data Source [id number] 05/12/2020 11:35:00 AM EDT [facility] Name Value Range Interpretation Code Description Data Carol rce(s) Supporting Document(s) SARS coronavirus 2 RNA [facility] This lab was ordered by [facility] and reported by [facility]. ID Date Data Source [id number] 05/03/2020 08:39:00 AM EDT MEDENT ([facility], ) Name Value Range Interpretation Code Description Data Carol rce(s) Supporting Document(s) Laboratory test finding (navigational concept) Laboratory test result MEDENT ([facility]) ID Date Data Source [id number] 02/29/2020 12:00:00 AM EDT [facility] Name Value Range Interpretation Code Description Data Carol rce(s) Supporting Document(s) SARS coronavirus 2 RNA [Presence] in Res piratory specimen by EUN with probe detection [facility] This lab was ordered by Mark Tello and reported by [facility]. ID Date Data Source [id number] 01/12/2020 09:31:00 AM EDT [facility] ([facility]) Name Value Range Interpretation Code Description Data Carol rce(s) Supporting Document(s) Laboratory test finding (navigational concept) Laboratory test result [facility] ([facility]) ID Date Data Source [id number] 12/30/2019 09:23:00 AM EDT [facility] ([facility]) Name Value Range Interpretation Code Description Data Carol rce(s) Supporting Document(s) Laboratory test finding (navigational concept) Laboratory test result [facility] ([facility]) 12/30/19 (SatDecember 29) 11:56 AM ANTHONY franco [facility] THEY ARE NOT DOING MRI UNTIL JANUARY. JAIME AWARE.DGA 12/30/19 (SatDecember 29) 11:57 AM GANESHJustin AVERY [facility] phone number: [phone] ID Date Data Source GATS (NEGATIVE STREP SCREEN) 08/14/2019 12:00:00 AM EST eCW1 [facility]) Name Value Range Interpretation Code Description Data Carol rce(s) Supporting Document(s) FULL REPORT IN LAB NOTES (eCW and [facility]). GATS CULTURE (NEG STREP SCR) eCW1 ([facility]) Procedure Vital Signs ID Date Data Source UNK Name Value Range Interpretation Code Description Data Source(s) Body surface area Derived from formula 1.92 m2 1.92 m2 [facility] ([facility], ) Body weight 84.058 kg 84.058 kg [facility] ([facility]) [place] body weight 125 [lb_av] 125 [lb_av] MEDEN T ([facility]) Body mass index (BMI) [Ratio] 30.8 kg/m2 30.8 k g/m2 [facility] ([facility]) Body weight 185.31 [lb_av] 185.31 [lb_av] [facility] ([facility]) Body height 65 [in_i] 65 [in_i] [facility] ([facility]) 5'5" Body temperature 96.9 [degF] 96.9 [degF] [facility] ([facility]) Body mass index (BMI) [Ratio] 31.0 kg/m2 31.0 k g/m2 [facility] ([facility]) Body height 63 [in_i] 63 [in_i] [facility] ([facility]) 5'3" Body weight 175.00 [lb_av] 175.00 [lb_av] [facility] ([facility]) Body temperature 98.4 [degF] 98.4 [degF] [facility] ([facility]) Oxygen saturation in Arterial blood by Pulse oximetry 97 % 97 % [facility] ([facility]) Respiratory rate 16 /min 16 /min [facility] ( [facility]) Heart rate 84 /min 84 /min [facility] ([facility]) Diastolic blood pressure 90 mm[Hg] 90 mm[Hg] [facility] ([facility]) Systolic blood pressure 126 mm[Hg] 126 mm[Hg] [facility] ([facility]) Body surface area Derived from formula 1.78 m2 1.78 m2 [facility] ([facility]) Body weight 77.112 kg 77.112 kg [facility] ([facility]) [place] body weight 110 [lb_av] 110 [lb_av] [facility] ([facility]) Body mass index (BMI) [Ratio] 31.1 kg/m2 31.1 k g/m2 [facility] ([facility]) Body weight 170.00 [lb_av] 170.00 [lb_av] [facility] ([facility]) Body height 62 [in_i] 62 [in_i] MEDENT ([facility], ) 5'2" Body temperature 97.6 [degF] 97.6 [degF] MEDENT ([facility], ) Diastolic blood pressure 76 mm[Hg] 76 mm[Hg] eCW1 [facility]) Systolic blood pressure 122 mm[Hg] 122 mm[Hg] e CW1 ([facility]) Body mass index (BMI) [Ratio] 31.32 kg/m2 31.32 kg/m2 eCW1 ([facility]) Body height 63 [in_us] 63 [in_us] eCW1 ([facility]) Body weight Measured 176.8 [lb_av] 176.8 [lb_av ] eCW1 [facility]) Diastolic blood pressure 80 mm[Hg] 80 mm[Hg] eCW1 [facility]) Systolic blood pressure 150 mm[Hg] 150 mm[Hg] e CW1 ([facility]) Body temperature 97.8 [degF] 97.8 [degF] eCW1 ( [facility]) Respiratory rate 18 /min 18 /min eCW1 ([facility]) Heart rate 88 /min 88 /min eCW1 ([facility]) Body mass index (BMI) [Ratio] 30.29 kg/m2 30.29 kg/m2 W1 ([facility]) Body height 63 [in_us] 63 [in_us] eCW1 ([facility]) Body weight Measured 171 [lb_av] 171 [lb_av] eC W1 ([facility]) Diastolic blood pressure 72 mm[Hg] 72 mm[Hg] eCW1 ([facility]) Systolic blood pressure 118 mm[Hg] 118 mm[Hg] e CW1 ([facility]) Body mass index (BMI) [Ratio] 29.99 kg/m2 29.99 kg/m2 W1 ([facility]) Body height 62 [in_us] 62 [in_us] eCW1 ([facility]) Body weight Measured 174 [lb_av] 174 [lb_av] eC W1 ([facility]) Patient Treatment Plan of Care Planned Activity Planned Date Details Description Data Source (s) Clindamycin 300 MG Oral Capsule 11/07/2019 12:00:00 AM EDT eCW1 ([facility]) benzonatate 200 MG Oral Capsule 08/14/2019 12:00:00 AM EST eCW1 ([facility]) Polymyxin B 59038 UNT/ML / Trimethoprim 1 MG/ML Ophtha lmic Solution [Polytrim] 08/14/2019 12:00:00 AM EST eCW1 ([facility]) benzonatate 200 MG Oral Capsule 08/14/2019 12:00:00 AM EST eCW1 [facility])
--- OUTSIDE RECORDS SUMMARY | 2020-09-24 17:13 | CCD | Continuity of Care Document ---
Author Author Michael OROSCO EPIC INTERFACE ANALYST Organization Unknown Address [address] [place] [address] [place] [address] Phone [phone] Care Team Providers Care Top Frame Fitter Name Role Phone Nolan Co Publi AUTM [phone] Problems Description No Information Available Social History [...] diseases Elaina Orosco NP Plan of Treatment No Information Available Functional Status Description No Information Available Mental Status Description No Information Available Referrals Description No Information Available
--- OUTSIDE RECORDS SUMMARY | 2020-09-24 17:13 | CCD | Continuity of Care Document ---
Author Author Michael ESQUIVEL MD Organization Unknown Address [address] [place] [address], [address] [place] [address] Phone [phone] Care Team Providers Care Web Graphic Designer Name Role Phone Ricky Zarate MD AUTM [phone] AUTM Unavailable Problems Description No Active Problems Social History Type Date Description Comments Sex Unknown ETOH Use Sociable Recreational Drug Use Denies Drug Use Tobacco Use Start: Unknown Report Cessation Counseling Was Provided Tobacco Use Start: Unknown End: Unknown Patient is a former smoker quit 06/2016 Allergies, Adverse Reactions, Alerts Active Allergies Reaction Severity Comments Date Norethindrone Hives Leonela 01/12/2016 Inactive Allergies NKDA 11/12/2012 Charisma 01/12/2016 Medications Active Medications SIG Qnty Indications Ordering Provide r Date Oxycodone-Acetaminophen 5-325mg Ta blets 1- 2 tabs by mouth every 4 to 6 hours as needed / post surgical pain 20tabs Power Esquivel MD 05/09/2020 Trinessa (28) 0.18/0 .215/0.25 mg-35 mcg Tablets 1 by mouth every day 3palbin Salgado MD 12/2016 Tylenol 8 Hour 650mg Tablets ER Unknown Ibuprofen 800mg Tablets 1 by mouth every 8 hours as needed Unknown Immunizations CPT Code Status Date Vaccine Lot # 90016 Given 03/28/2015 Tetanus, Diphthe nixon Toxoids/Acellular Pertussis Vaccine 7 Or > Vital Signs Date Vital Result Comment 12/23/2019 9:56am Body Temperature 97.6 F Height 62 inches 5'2" Weight 170.00 lb BMI (Body Mass Index) 31.1 kg/m2 [place] Body Weight 110 lb Weight 77.112 kg 05/06/2018 10:13am BP Systolic 122 mmHg BP Diastolic 76 mmHg Height 62 inches 5'2" Weight 166.00 lb BMI (Body Mass Index) 30.4 kg/m2 [place] Body Weight 110 lb Weight 75.298 kg Results Test Acquired Date Facility Test Result H/L Range Note Order 05/03/2020 [facility] [id number] [place] [address] [phone] Surgery <pending> Procedures Date Code Description Status 05/17/2020 31589 Arthroscopy,Shoulder Surgical Ca psulorrhaphy Completed Medical Devices Description No Information Available Encounters Type Date Location Provider Dx Diagnosis Office Visit 06/27/2020 9:10a [facility] Power Esquivel MD Z47.89 Encounter for other orthopedic aftercare Assessments Date Code Description Provider 06/27/2020 Z47.89 Encounter for other orthopedic a ftercare Power Esquivel MD 05/30/2020 Z47.89 Encounter for other orthopedic a ftcarmelita Esquivel MD 05/17/2020 M25.311 Other instability, right shoulde r Power Esquivel MD 04/07/2020 M65.811 Other synovitis and tenosynoviti s, right shoulder Power Esquivel MD 04/07/2020 M25.311 Other instability, right shoulde r Power Esquivel MD 03/17/2020 M65.811 Other synovitis and tenosynoviti s, right shoulder Power Esquivel MD 03/17/2020 M25.311 Other instability, right shoulde r Power Esquivel MD Plan of Treatment 06/27/2020 - Power Esquivel MD* Z47.89 Encounter for other orthopedic aftercare * New Orders:* Physical Therapy, Ordered: 06/27/20 * Follow up:* 6 weeks with SW for right shoulder recheck please. Functional Status Description No Information Available Mental Status Description No Information Available Referrals Refer to Reason for Referral Status Appt Date Power Esquivel MD PT EVAL [phone], N O AUTH REQD/OUT OF NETWORK. PER KAILASH WELLS PT DEPT,,LD Created [address] [facility], [address] [place] [address] [phone] Power Esquivel MD SURGERY PER AAKASH MISHRA [facility] Justin PPROVAL FOR RT SHOULDER SURGERY ([id number]) TO SURGERY NT CALL REF #[id number] Created [address] [place] [address] [phone] Power Esquivel [place] MRI [address]120 APPROVED [id number], APPROVED [id number], HAVING THIS DONE AT [facility] PER DR ESQUIVEL AND PATIENT, THIS IS THE ONLY PLACE THAT TAKES HER INSURANCE. BOTH AUTHS ARE GOOD TILL 08-14-20, SENT TO [facility]..LD Created [address] [place] [address] [phone] Power Esquivel MD PT EVAL [phone], N O AUTH REQD/OUT OF NETWORK. PER KAILASH REF#[id number] [facility] PT DEPT,,LD Created [facility] [place] [address] [phone] [place] MRI [address] APPROVED [id number], APPROVED [id number], HAVING THIS DONE AT [facility] PER DR ESQUIVEL AND PATIENT, THIS IS THE ONLY PLACE THAT TAKES HER INSURANCE. BOTH AUTHS ARE GOOD TILL 02/11/2020, SENT TO [facility]..LD Closed [address] [place] [address] [phone]
--- OUTSIDE RECORDS SUMMARY | 2020-09-24 17:13 | CCD | Continuity of Care Document ---
Author Author Michael ESQUIVEL MD Organization Unknown Address [address] [place] [address], [address] [place] [address] Phone [phone] Care Team Providers Care Bumper Straightener Name Role Phone Ricky Zarate MD AUTM [phone] AUTM Unavailable Problems Description No Active Problems [...] CPT Code Status Date Vaccine Lot # [id number] Given 03/28/2015 Tetanus, Diphthe nixon Toxoids/Acellular Pertussis Vaccine 7 Or > Vital Signs Date Vital Result Comment 12/23/2019 9:56am Body Temperature 97.6 F Height 62 inches 5'2" Weight 170.00 lb BMI (Body Mass Index) 31.1 kg/m2 [place] Body Weight 110 lb Weight 77.112 kg BSA (Body Surface Area) 1.78 m2 05/06/2018 10:13am BP Systolic 122 mmHg BP Diastolic 76 mmHg Height 62 inches 5'2" Weight 166.00 lb BMI (Body Mass Index) 30.4 kg/m2 [place] Body Weight 110 lb Weight 75.298 kg BSA (Body Surface Area) 1.77 m2 Results Test Acquired Date Facility Test Result H/L Range Note Order 05/03/2020 [facility] actice [id number] [place] [address] [phone] Surgery <pending> Procedures Date Code Description Status 05/17/2020 66531 Arthroscopy,Shoulder Surgical Ca psulorrhaphy Completed Medical Devices Description No Information Available Encounters Type Date Location Provider Dx Diagnosis Office Visit 06/27/2020 9:10a [facility] Orthopedics Power Esquivel MD Z47.89 Encounter for other orthopedic aftercare Assessments Date Code Description Provider 08/09/2020 Z47.89 Encounter for other orthopedic a ftcarmelita Esquivel MD 06/27/2020 Z47.89 Encounter for other orthopedic a ftcarmelita Esquivel MD 05/30/2020 Z47.89 Encounter for other [...] r Power Esquivel MD Plan of Treatment 08/09/2020 - Power Esquivel MD* Z47.89 Encounter for other orthopedic aftercare * Follow up:* in 6 weeks with SWM for right shoulder recheck please. Functional Status Description No Information Available Mental Status Description No Information Available Referrals Refer to Dr Reason for Referral Status Appt Date Power Esquivel MD PT EVAL [phone], N O AUTH REQD/OUT OF NETWORK. PER KAILASH WELLS PT DEPT,,[place] Created [address] [facility], [address] [place] [address] [phone] Power Esquivel MD SURGERY PER AAKASH [facility] A PPROVAL FOR RT SHOULDER SURGERY ([id number]) TO SURGERY NT CALL REF #[id number] Created [address], [address] [place] [id number] [phone] Power Esquivel [place] MRI [address]7782 APPROVED [id number], [id number] APPROVED [id number], HAVING THIS DONE AT [facility] PER DR ESQUIVEL AND PATIENT, THIS IS THE ONLY PLACE THAT TAKES HER INSURANCE. BOTH AUTHS ARE GOOD TILL 08-14-20, SENT TO [facility]..LD Created [address], [address] [place] [id number] [phone]
--- OUTSIDE RECORDS SUMMARY | 2020-09-24 17:13 | CCD | Continuity of Care Document ---
Author Author Michael ESQUIVEL MD Organization Unknown Address [address] [place] [address], [address] [place] [address] Phone [phone] Care Team Providers Care Fishing Instructor Name Role Phone Ricky Zarate MD AUTM [phone] AUTM Unavailable Problems Description No Active Problems [...] SIG Qnty Indications Ordering Provide r Date Trinessa (28) 0.18/0 .215/0.25 mg-35 mcg Tablets 1 by mouth every day 3palbin Salgado MD 12/2016 Tylenol 8 Hour 650mg Tablets ER as needed Unknown Ibuprofen 800mg Tablets 1 by mouth every 8 hours as needed Unknown History Medications Oxycodone-Acetaminophen 5-325mg Ta blets 1- 2 tabs by mouth every 4 to 6 hours as needed / post surgical pain 20tabs Power Esquivel MD 05/09/2020 - 08/29/2020 Immunizations CPT Code Status Date Vaccine Lot # [id number] Given 03/28/2015 Tetanus, Diphthe nixon Toxoids/Acellular Pertussis Vaccine 7 Or > Vital Signs Date Vital Result Comment 08/29/2020 10:23am Body Temperature 96.9 F Height 65 inches 5'5" Weight 185.31 lb BMI (Body Mass Index) 30.8 kg/m2 [place] Body Weight 125 lb Weight 84.058 kg BSA (Body Surface Area) 1.92 m2 12/23/2019 9:56am Body Temperature 97.6 F Height 62 inches 5'2" Weight 170.00 lb BMI (Body Mass Index) 31.1 kg/m2 [place] Body Weight 110 lb Weight 77.112 kg BSA (Body Surface Area) 1.78 m2 Results Description No Information Available Procedures Date Code Description Status 05/17/2020 98703 Arthroscopy,Shoulder Surgical Ca psulorrhaphy Completed Medical Devices Description No Information Available Encounters Type Date Location Provider Dx Diagnosis Office Visit 06/27/2020 9:10a [facility] Orthopedics Power Esquivel MD Z47.89 Encounter for other orthopedic aftercare Assessments Date Code Description Provider 08/09/2020 Z47.89 Encounter for other orthopedic a ftpatriciaare Power Esquivel MD 06/27/2020 Z47.89 Encounter for other [...] Appt Date Power Esquivel MD PT EVAL [phone], N O AUTH REQD/OUT OF NETWORK. PER KAILASH WELLS PT DEPT,,[place] Closed [facility], [address] [place], [place] [address] [phone] Power Esquivel MD SURGERY PER [facility] A PPROVAL FOR RT SHOULDER SURGERY ([id number]) TO SURGERY NT CALL REF #[id number] Closed [facility], [address] [place] [address] [phone]
[2020-09-24] MEDS ORDERED: diphenhydrAMINE 50MG/ML VIAL (J1200) IV ONE (17:30)
[2020-09-24] MEDS ORDERED: NS 1,000 ML IV ONE (17:30)
[2020-09-24] MEDS ORDERED: methylPREDNISolone 125MG 2ML VIAL IV ONE (17:30)
[2020-09-24] MEDS ORDERED: FAMOTIDINE INJ 20MG/2ML VIAL (S0028 PER 1) IVP ONE (17:30)
--- OUTSIDE RECORDS SUMMARY | 2020-09-24 17:56 | CCD ---
Author Author [facility] Organization [facility] Address Unknown Phone Unavailable Care Team Providers Care Recreation Therapy Teacher Name Role Phone Percy Hicks MD Unavailable [...] Unavailable AbdifatahisonPercy MD Unavailable Unavailable Nuno, Elaina AUTOMOBILE CLUB INFORMATION CLERK Unavailable Unavailable Nuno, Elaina AUTOMOBILE CLUB INFORMATION CLERK Unavailable Unavailable Nuno, Elaina AUTOMOBILE CLUB INFORMATION CLERK Unavailable Unavailable Nuno, Elaina AUTOMOBILE CLUB INFORMATION CLERK Unavailable Unavailable Nuno, Elaina AUTOMOBILE CLUB INFORMATION CLERK Unavailable Unavailable Nuno, Elaina AUTOMOBILE CLUB INFORMATION CLERK Unavailable Unavailable Nuno, Elaina AUTOMOBILE CLUB INFORMATION CLERK Unavailable Unavailable Nuno, Elaina AUTOMOBILE CLUB INFORMATION CLERK Unavailable Unavailable Nuno, Elaina AUTOMOBILE CLUB INFORMATION CLERK Unavailable Unavailable Nuno, Elaina AUTOMOBILE CLUB INFORMATION CLERK Unavailable Unavailable Nuno, Elaina AUTOMOBILE CLUB INFORMATION CLERK Unavailable Unavailable Re-disclosure Warning The records that [...] is protected by Article 27-F of the [facility] Public Health law. If you continue you may have access to information: Regarding HIV / AIDS; Provided by facilities licensed or operated by the [facility] Office of Mental Health; or Provided by the [facility] Office for People With Developmental Disabilities. If such information is present, then the following [facility] mandated warning applies: This information has been [...] law may result in a fine or long-term sentence or both. A general authorization for the release of medical or other information is NOT sufficient authorization for further disc losure. Allergies and Adverse Reactions Type Description Substance Reaction Status Data Source(s ) pineapple pineapple pineapple Hives Active eCW1 ([facility]) pineapple pineapple pineapple Hives Active eCW1 ([facility]) Drug allergy Leonela Leonela Hives Active eCW1 ([facility]) Family History Family Member Name Family Member Gender Family Member Status Date o f Status Description Data Source(s) Unknown Male Problem MEDENT ([facility]) Unknown Unknown Problem MEDENT ([facility] ) Unknown Unknown Problem MEDENT ([facility], ) Unknown Unknown Problem MEDENT ([facility]) Unknown Unknown Problem MEDENT [facility] Unknown Unknown Problem MEDENT ([facility] ) Unknown Unknown Problem MEDENT ([facility] ) Unknown Unknown Problem MEDENT ([facility] ) Unknown Unknown Problem MEDENT ([facility] ) PGF; at 62 Encounters Encounter Providers Location Date Indications Data Source(s ) Outpatient Attender: Elaina scott 07/11/2020 04:35:00 PM EST MEDENT ([facility] Office Visit Attender: Pwoer Freire/[place] 06/27/2020 08:10:00 AM EST MEDENT ([facility] Outpatient Attender: Power Freire/[place] 12/23/2019 09:30:00 AM EDT MEDENT ([facility]) [address] [phone] 11/07/2019 12:00:00 AM EDT eCW1 ([facility]) [address] [address] 09/18/2019 12:00:00 AM EST eCW1 [facility]) [address] [address] 09/04/2019 12:00:00 AM EST eCW1 ([facility]) [facility] [address] [place] [phone] 08/15/2019 12:00:00 AM EST eCW1 ([facility]) [facility] [address] [place] [phone] 08/14/2019 12:00:00 AM EST eCW1 ([facility]) [address] [address] 08/10/2019 12:00:00 AM EST eCW1 ([facility]) [address] [address] 07/28/2019 12:00:00 AM EST eCW1 ([facility]) Medications Medication Brand Name Start Date Product Form Dose Route Admi nistrative Instructions Pharmacy Instructions Status Indications Reaction Description Data Source(s) Acetaminophen 325 MG / Oxycodone Hydrochloride 5 MG Or al Tablet Oxycodone-Acetaminophen 05/09/2020 12:00:00 AM EDT ORAL completed MED[facility] ([facility] ) Clindamycin 300 MG Oral Capsule Clindamycin HCl 300 MG Clind amycin HCl 300 MG 11/07/2019 12:00:00 AM EDT active 1 capsule eCW1 ([facility]) 5-325 mg 09/04/2019 12:00:00 AM EST tablet [...] AM EST active 1 capsul e eCW1 ([facility]) Polytrim 15579-4.1 UNIT/ML UNK 08/14/2019 12:00:00 AM EST suspended 1 gtt ou eCW1 ([facility]) Polymyxin B 76594 UNT/ML / Trimethoprim 1 MG/ML Ophthalmic Solution [Polytrim] Polytrim 31438-4.1 UNIT/ML Polytrim 72734-8.1 UNIT/ML 08/14/2019 12:00:00 AM EST active 1 gtt ou eCW1 ([facility]) Benzonatate 200 MG UNK 08/14/2019 12:00:00 AM EST suspended 1 capsule eCW1 ([facility]) benzonatate 200 MG Oral Capsule Benzonatate 200 MG Benzonata te 200 MG 08/14/2019 12:00:00 AM EST active 1 capsu le eCW1 ([facility]) 0.18/0.215/0.25 mg-35 mcg (28) 02/27/2019 12:00:00 AM EDT ta blet 28 TAKE ONE TABLET BY MOUTH EVERY DAY TAKE ONE TABLET BY MOUTH EVERY DAY SOLD: 08/22/2019 [facility] Insurance Providers Payer name Policy type / Coverage type Policy ID Covered libertarian ID Covered libertarian's relationship to mancera Policy Mancera Plan Information [facility] PLUS [id number] SP [id number] [facility] PLUS [id number] SP [id number] SELF PAY ONLY [id number] HU2 [id number] [employer] [place] [id number] HU2 [id number] [place] 302/307 [id number] HU2 [id number] [place]/307 [id number] HU2 [id number] [employer] [place] [id number] SP [id number] [place]PO 302/307 [id number] HU2 [id number] BS [place] Commercial [id number] Family Dependent [id number] [employer] [employer] Health Maintenance Organization (HMO) [id number] Family Dependent [id number] [place] P[place] 302/307 [id number] HU2 [id number] [place] 302/307 [id number] HU2 [id number] [employer] Health Maintenance Organization (HMO) [id number] Family Dependent [id number] [place] [place] PPO 302/307 [id number] HU2 [id number] [place] PPO 302/307 [id number] HU2 [id number] [employer]BS B [id number] P [id number] [place] [place] PPO 302/307 [id number] HU2 [id number] [employer] Health Maintenance Organization (HMO) Family Dependent [place] PPO 302/307 [id number] HU2 [id number] [employer] B [id number] P [id number] [employer] Health Maintenance Organization (HMO) Family Dependent [employer] BC-BS PPO 306 [id number] HU2 [id number] [place] OF [place] 306/806 [id number] SP [id number] [place] [place] 306/806 [id number] SP [id number] [facility] MEDICAL CLAIMS [id number] SP [id number] Surgeries/Procedures Procedure Description Date Indications Data Source(s) Arthroscopy,Shoulder Surgical Capsulorrhaphy 0 12:00:00 AM EDT MEDENT ([facility], ) X-Ray Shoulder Complete 12/23/2019 12:00:00 AM EDT MED[facility] ([facility]) X-Ray Shoulder Complete 12/23/2019 12:00:00 AM EDT MEDENT ([facility]) RADEX SHOULDER COMPLETE MINIMUM 2 VIEWS 12/23/2019 12: 00:00 AM EDT MEDENT ([facility]) RADEX SHOULDER COMPLETE MINIMUM 2 VIEWS 12/23/2019 12: 00:00 AM EDT MEDENT ([facility]) STREP A ASSAY W/OPTIC 08/14/2019 12:00:00 AM EST eCW1 ([facility]) Results ID Date Data Source [id number] 05/12/2020 11:35:00 AM EDT [facility] Name Value Range Interpretation Code Description Data Carol rce(s) Supporting Document(s) SARS coronavirus 2 RNA [facility] This lab was ordered by [facility] and reported by [facility]. ID Date Data Source [id number] 05/03/2020 08:39:00 AM EDT MEDENT ([facility] ) Name Value Range Interpretation Code Description Data Carol rce(s) Supporting Document(s) Laboratory test finding (navigational concept) Laboratory test result [facility] ([facility]) ID Date Data Source [id number] 02/29/2020 12:00:00 AM EDT [facility] Name Value Range Interpretation Code Description Data Carol rce(s) Supporting Document(s) SARS coronavirus 2 RNA [Presence] in Res piratory specimen by EUN with probe detection [facility] This lab was ordered by Mark Tello and reported by [facility]. ID Date Data Source [id number] 01/12/2020 09:31:00 AM EDT [facility] ([facility]) Name Value Range Interpretation Code Description Data Carol rce(s) Supporting Document(s) Laboratory test finding (navigational concept) Laboratory test result [facility] ([facility]) ID Date Data Source [id number] 12/30/2019 09:23:00 AM EDT [facility] ([facility]) Name Value Range Interpretation Code Description Data Carol rce(s) Supporting Document(s) Laboratory test finding (navigational concept) Laboratory test result [facility] ([facility]) 12/30/19 (SatDecember 29) 11:56 AM ANTHONY franco [facility] THEY ARE NOT DOING MRI UNTIL JANUARY. JAIME AWARE.DGA 12/30/19 (SatDecember 29) 11:57 AM GANESHJutsin AVERY [facility] phone number: [phone] ID Date Data Source GATS (NEGATIVE STREP SCREEN) 08/14/2019 12:00:00 AM EST eCW1 ([facility]) Name Value Range Interpretation Code Description Data Carol rce(s) Supporting Document(s) FULL REPORT IN LAB NOTES (eCW and [facility]). GATS CULTURE (NEG STREP SCR) eCW1 ([facility]) Procedure Vital Signs ID Date Data Source UNK Name Value Range Interpretation Code Description Data Source(s) Body surface area Derived from formula 1.92 m2 1.92 m2 [facility] ([facility], ) Body weight 84.058 kg 84.058 kg [facility] ([facility]) Fulda body weight 125 [lb_av] 125 [lb_av] MEDEN T ([facility]) Body mass index (BMI) [Ratio] 30.8 kg/m2 30.8 k g/m2 [facility] ([facility]) Body weight 185.31 [lb_av] 185.31 [lb_av] [facility] Body height 65 [in_i] 65 [in_i] [facility] ([facility]) 5'5" Body temperature 96.9 [degF] 96.9 [degF] [facility] ([facility]) Body mass index (BMI) [Ratio] 31.0 kg/m2 31.0 k g/m2 [facility] ([facility]) Body height 63 [in_i] 63 [in_i] [facility] ([facility]) 5'3" Body weight 175.00 [lb_av] 175.00 [lb_av] [facility]) Body temperature 98.4 [degF] 98.4 [degF] [facility]) Oxygen saturation in Arterial blood by Pulse oximetry 97 % 97 % [facility] ([facility]) Respiratory rate 16 /min 16 /min [facility] ( [facility]) Heart rate 84 /min 84 /min [facility] ([facility]) Diastolic blood pressure 90 mm[Hg] 90 mm[Hg] [facility] ([facility]) Systolic blood pressure 126 mm[Hg] 126 mm[Hg] [facility]) Body surface area Derived from formula 1.78 m2 1.78 m2 [facility] ([facility]) Body weight 77.112 kg 77.112 kg [facility] ([facility]) Fulda body weight 110 [lb_av] 110 [lb_av] [facility] Body mass index (BMI) [Ratio] 31.1 kg/m2 31.1 k g/m2 [facility] ([facility]) Body weight 170.00 [lb_av] 170.00 [lb_av] [facility] Body height 62 [in_i] 62 [in_i] MEDENT ([facility] ) 5'2" Body temperature 97.6 [degF] 97.6 [degF] [facility] ([facility], ) Diastolic blood pressure 76 mm[Hg] 76 mm[Hg] eCW1 ([facility]) Systolic blood pressure 122 mm[Hg] 122 mm[Hg] e CW1 ([facility]) Body mass index (BMI) [Ratio] 31.32 kg/m2 31.32 kg/m2 eCW1 ([facility]) Body height 63 [in_us] 63 [in_us] eCW1 ([facility]) Body weight Measured 176.8 [lb_av] 176.8 [lb_av ] eCW1 ([facility]) Diastolic blood pressure 80 mm[Hg] 80 mm[Hg] eCW1 ([facility]) Systolic blood pressure 150 mm[Hg] 150 mm[Hg] e CW1 ([facility]) Body temperature 97.8 [degF] 97.8 [degF] eCW1 ( [facility]) Respiratory rate 18 /min 18 /min eCW1 ([facility]) Heart rate 88 /min 88 /min eCW1 ([facility]) Body mass index (BMI) [Ratio] 30.29 kg/m2 30.29 kg/m2 W1 ([facility]) Body height 63 [in_us] 63 [in_us] eCW1 ([facility]) Body weight Measured 171 [lb_av] 171 [lb_av] eC W1 ([facility]) Diastolic blood pressure 72 mm[Hg] 72 mm[Hg] eCW1 ([facility]) Systolic blood pressure 118 mm[Hg] 118 mm[Hg] e CW1 ([facility]) Body mass index (BMI) [Ratio] 29.99 kg/m2 29.99 kg/m2 W1 ([facility]) Body height 62 [in_us] 62 [in_us] eCW1 ([facility] hospital) Body weight Measured 174 [lb_av] 174 [lb_av] eC W1 ([facility]) Patient Treatment Plan of Care Planned Activity Planned Date Details Description Data Source (s) Clindamycin 300 MG Oral Capsule 11/07/2019 12:00:00 AM EDT eCW1 ([facility]) benzonatate 200 MG Oral Capsule 08/14/2019 12:00:00 AM EST eCW1 ([facility]) Polymyxin B 69172 UNT/ML / Trimethoprim 1 MG/ML Ophtha lmic Solution [Polytrim] 08/14/2019 12:00:00 AM EST eCW1 ([facility] hospital) benzonatate 200 MG Oral Capsule 08/14/2019 12:00:00 AM EST eCW1 ([facility])
[2020-09-24 18:11] LABS: BASO % 0.3 % (0.0-1.0); EOS # 0.1 10^3/uL (0.0-0.5); EOS % 1.6 % (0.0-3.0); HEMATOCRIT 44.3 % (36.0-47.0); HEMOGLOBIN 14.6 g/dl (12.0-15.5); LYMPH # 1.9 10^3/uL (1.5-5.0); LYMPH % 27.8 % (24.0-44.0); MONO # 0.4 10^3/uL (0.0-0.8); MONO % 6.2 % (0.0-5.0); NEUTROPHILS # 4.3 10^3/uL (1.5-8.5); NEUTROPHILS % 63.8 % (36.0-66.0); PLATELET COUNT, AUTOMATED 178 10^3/uL (150-450); RED BLOOD COUNT 4.87 10^6/uL (4.00-5.40); WHITE BLOOD COUNT 6.7 10^3/uL (4.0-10.0)
[2020-09-24 18:29] LABS: ERYTHROCYTE SEDIMENTATION RATE 7 mm/hr (0-20)
[2020-09-24 18:42] LABS: BLOOD UREA NITROGEN 9 MG/DL (7-18); CALCIUM LEVEL 9.9 MG/DL (8.5-10.1); CARBON DIOXIDE LEVEL 24 MEQ/L (21-32); CHLORIDE LEVEL 107 MEQ/L (98-107); CREATININE FOR GFR 0.64 MG/DL (0.55-1.30); GLOMERULAR FILTRATION RATE > 60.0 (>60); GLUCOSE, FASTING 76 MG/DL (70-100); POTASSIUM SERUM 4.4 MEQ/L (3.5-5.1); SODIUM LEVEL 140 MEQ/L (136-145)
[2020-09-24] MEDS ORDERED: PRED20TA PO (19:31)
[2020-09-24 19:56] VITALS: BP 145/93
== END 2020-09-24 19:58 | disposition home or self-care (01) ==
LOC: M ED 17:04
DX: R22.1 Localized swelling, mass and lump, neck (principal); T50.B95A Adverse effect of other viral vaccines, initial encounter; Y92.9 Unspecified place or not applicable; Y93.9 Activity, unspecified; Z88.7 Allergy status to serum and vaccine; Z88.8 Allergy status to other drugs, medicaments and biological substances; Z91.018 Allergy to other foods
CPT/HCPCS: 80048; 85025; 85652; 86140; 94760; 96361; 96374; 96375; 99284; J1200; J2930

== ENCOUNTER → 2021-04-25 | Outpatient (REF) | payer BC ==
[~2021-04-25] MED LIST changes: +PRED20TA PO
== END ==
LOC: M LAB REF 15:40
PROVIDERS: ATTEND Surgery
DX: L72.3 Sebaceous cyst (principal)

== ENCOUNTER → 2021-08-03 | Outpatient (CLI) | payer BC | LOC: M LABSMTC 11:21 | PROVIDERS: ATTEND Anesthesiology | DX: Z01.818 Encounter for other preprocedural examination (principal); Z11.52 Encounter for screening for COVID-19 ==

== ENCOUNTER 2021-10-30 12:00 | Day surgery (SDC) | payer BC ==
[~2021-10-30] VITALS: Ht 160 cm; Wt 81.6 kg
[~2021-10-30 12:00] MED LIST changes: +NS 1,000 ML IV ONE; +ONDANSETRON 4MG/2ML VIAL As Ordered ONE
[2021-10-30] MEDS ORDERED: fentaNYL 100 MCG/2 ML INJECTION As Ordered ONE (12:20)
[2021-10-30] MEDS ORDERED: LIDOCAINE 2% 100MG/5ML SDV (FOR ANES.) As Ordered ONE (12:21)
[2021-10-30] MEDS ORDERED: propofoL 200 MG/20 ML VIAL As Ordered ONE ×2 (12:21→13:14)
[2021-10-30] MEDS ORDERED: ONDANSETRON 4MG/2ML VIAL As Ordered ONE (12:57)
[2021-10-30] MEDS ORDERED: METOCLOPRAMIDE INJ 10MG/2ML VIAL (J2765 PER 1) As Ordered ONE (13:24)
[2021-10-30 13:45] VITALS: BP 127/87
== END 2021-10-30 13:45 | disposition home or self-care (01) ==
LOC: M OPP 12:00
PROVIDERS: ATTEND Internal Medicine Gastroenterology
DX: Z12.11 Encounter for screening for malignant neoplasm of colon (principal); Z86.010 Personal history of colon polyps; Z80.0 Family history of malignant neoplasm of digestive organs; R12 Heartburn; R11.2 Nausea with vomiting, unspecified; Z88.7 Allergy status to serum and vaccine; Z88.8 Allergy status to other drugs, medicaments and biological substances; Z91.018 Allergy to other foods; F17.210 Nicotine dependence, cigarettes, uncomplicated
CPT/HCPCS: 43239; 45378; 88305; J2405; J2765; J3010

== ENCOUNTER → 2021-11-08 | Outpatient (REF) | payer BC ==
[~2021-11-08] MED LIST changes: -NS 1,000 ML IV ONE; -ONDANSETRON 4MG/2ML VIAL As Ordered ONE
[2021-11-08 16:00] LABS: BASO % 0.5 % (0.0-1.0); EOS # 0.1 10^3/uL (0.0-0.5); HEMATOCRIT 49.6 % (36.0-47.0); HEMOGLOBIN 16.7 g/dl (12.0-15.5); LYMPH # 2.3 10^3/uL (1.5-5.0); LYMPH % 29.2 % (24.0-44.0); MEAN CORPUSCULAR HEMOGLOBIN 30.8 pg (27.0-33.0); MEAN CORPUSCULAR HGB CONC 33.7 g/dl (32.0-36.5); MEAN CORPUSCULAR VOLUME 91.5 fl (80.0-96.0); MONO # 0.5 10^3/uL (0.0-0.8); MONO % 5.8 % (2.0-8.0); NEUTROPHILS # 4.9 10^3/uL (1.5-8.5); PLATELET COUNT, AUTOMATED 199 10^3/uL (150-450); RED BLOOD COUNT 5.42 10^6/uL (4.00-5.40); WHITE BLOOD COUNT 7.8 10^3/uL (4.0-10.0)
[2021-11-08 16:33] LABS: ALBUMIN 4.8 GM/DL (3.2-5.2); ALT/SGPT 27 U/L (12-78); BILIRUBIN,TOTAL 0.4 MG/DL (0.2-1.0); BLOOD UREA NITROGEN 11 MG/DL (7-18); CALCIUM LEVEL 9.5 MG/DL (8.5-10.1); CARBON DIOXIDE LEVEL 27 MEQ/L (21-32); CHLORIDE LEVEL 107 MEQ/L (98-107); CHOLESTEROL LEVEL 221 MG/DL (<200); CHOLESTEROL RISK RATIO 3.877 (<5); CREATININE FOR GFR 0.65 MG/DL (0.55-1.30); GLOMERULAR FILTRATION RATE > 60.0 (>60); GLUCOSE, FASTING 85 MG/DL (70-100); HDL CHOLESTEROL 57 MG/DL (>40); LDL CHOLESTEROL 153 MG/DL (<100); NON-HDL-C 164 MG/DL; POTASSIUM SERUM 4.6 MEQ/L (3.5-5.1); SODIUM LEVEL 138 MEQ/L (136-145); TOTAL PROTEIN 7.8 GM/DL (6.4-8.2); TRIGLYCERIDES LEVEL 57 MG/DL (<150)
== END ==
LOC: M SFHCADAM 11:39
PROVIDERS: ATTEND Family Medicine
DX: Z00.00 Encounter for general adult medical examination without abnormal findings (principal)

== ENCOUNTER → 2022-08-28 | Outpatient (REF) | payer OTHER | LOC: M PLALAB 14:55 | PROVIDERS: ATTEND Obstetrics & Gynecology | DX: Z01.419 Encounter for gynecological examination (general) (routine) without abnormal findings (principal) ==

== ENCOUNTER → 2022-08-28 | Outpatient (CLI) | payer OTHER ==
[2022-08-28 15:26] LABS: HEMATOCRIT 46.8 % (36.0-47.0); HEMOGLOBIN 15.4 g/dl (12.0-15.5); MEAN CORPUSCULAR HEMOGLOBIN 30.9 pg (27.0-33.0); MEAN CORPUSCULAR HGB CONC 32.9 g/dl (32.0-36.5); PLATELET COUNT, AUTOMATED 184 10^3/uL (150-450); RED BLOOD COUNT 4.98 10^6/uL (4.00-5.40); WHITE BLOOD COUNT 9.9 10^3/uL (4.0-10.0)
[2022-08-28 15:53] LABS: THYROID STIMULATING HORMONE 1.665 uIU/ML (0.55-4.78)
[2022-08-28 15:57] LABS: FREE T4 1.34 NG/DL (0.89-1.76)
== END ==
LOC: M PLALAB 14:04
PROVIDERS: ATTEND Obstetrics & Gynecology
DX: N93.9 Abnormal uterine and vaginal bleeding, unspecified (principal)

== ENCOUNTER → 2022-09-13 | Outpatient (CLI) | payer OTHER | LOC: M WHC 14:48 | PROVIDERS: ATTEND Obstetrics & Gynecology | DX: N93.9 Abnormal uterine and vaginal bleeding, unspecified (principal) ==

== ENCOUNTER → 2024-05-19 | Outpatient (CLI) | payer BC ==
[~2024-05-19] MED LIST changes: +ACET-683 PO; +AMOX875T2 PO; +IBUP200T46 PO; +OCUF0.25 OP
[2024-05-19 11:43] LABS: BASO % 0.7 % (0.0-1.0); EOS # 0.2 10^3/uL (0.0-0.5); EOS % 2.7 % (0.0-3.0); HEMATOCRIT 48.2 % (36.0-47.0); HEMOGLOBIN 15.7 g/dl (12.0-15.5); LYMPH # 1.8 10^3/uL (1.5-5.0); LYMPH % 30.2 % (24.0-44.0); MEAN CORPUSCULAR HEMOGLOBIN 30.6 pg (27.0-33.0); MEAN CORPUSCULAR HGB CONC 32.6 g/dl (32.0-36.5); MONO # 0.4 10^3/uL (0.0-0.8); MONO % 7.4 % (2.0-8.0); NEUTROPHILS # 3.4 10^3/uL (1.5-8.5); NEUTROPHILS % 58.7 % (36.0-66.0); PLATELET COUNT, AUTOMATED 184 10^3/uL (150-450); RED BLOOD COUNT 5.13 10^6/uL (4.00-5.40); WHITE BLOOD COUNT 5.8 10^3/uL (4.0-10.0)
[2024-05-19 12:14] LABS: ALBUMIN 3.9 G/DL (3.2-5.2); ALKALINE PHOSPHATASE 86 U/L (46-116); ALT/SGPT 17 U/L (7.0-40); AST/SGOT 13 U/L (<34); BILIRUBIN,TOTAL 0.3 MG/DL (0.3-1.2); BLOOD UREA NITROGEN 15 MG/DL (9-23); CALCIUM LEVEL 9.4 MG/DL (8.5-10.1); CARBON DIOXIDE LEVEL 29 MMOL/L (20-31); CHLORIDE LEVEL 109 MMOL/L (98-107); CHOLESTEROL LEVEL 149 MG/DL (<200); CHOLESTEROL RISK RATIO 3.12 (<5); CREATININE FOR GFR 0.61 MG/DL (0.55-1.30); GLOMERULAR FILTRATION RATE > 60.0 (>60); GLUCOSE, FASTING 88 MG/DL (60-100); HDL CHOLESTEROL 47.7 MG/DL (>40); LDL CHOLESTEROL 86.3 MG/DL (<100); NON-HDL-C 101.3 MG/DL; POTASSIUM SERUM 5.3 MMOL/L (3.5-5.1); SODIUM LEVEL 141 MMOL/L (136-145); TOTAL PROTEIN 6.4 G/DL (5.7-8.2); TRIGLYCERIDES LEVEL 75 MG/DL (<150)
== END ==
LOC: M LAB 10:34
PROVIDERS: ATTEND Emergency Medicine
DX: Z00.00 Encounter for general adult medical examination without abnormal findings (principal)

== ENCOUNTER → 2024-07-15 | Outpatient (REF) | payer BC | LOC: M LAB REF 18:56 | PROVIDERS: ATTEND Student in an Organized Health Care Education/Training Program | DX: J06.9 Acute upper respiratory infection, unspecified (principal) ==

== ENCOUNTER 2024-08-31 05:49 | Emergency (ER) | payer BC ==
[~2024-08-31] VITALS: Ht 160 cm; Wt 51.9 kg
[2024-08-31] MEDS ORDERED: PRED20TA PO (07:45)
[2024-08-31] MEDS ORDERED: BENA25CA4 PO (07:45)
[2024-08-31] MEDS: predniSONE 20 MG TAB PO ONE (07:51)
[2024-08-31 07:52] VITALS: BP 114/69; TEMP 97.2; O2SAT 98
== END 2024-08-31 08:21 | disposition home or self-care (01) ==
LOC: M ED 05:49
DX: L50.9 Urticaria, unspecified (principal); R21 Rash and other nonspecific skin eruption; Z88.7 Allergy status to serum and vaccine; Z88.8 Allergy status to other drugs, medicaments and biological substances; Z91.018 Allergy to other foods; Z79.1 Long term (current) use of non-steroidal anti-inflammatories (NSAID); Z79.2 Long term (current) use of antibiotics; Z79.52 Long term (current) use of systemic steroids; Z79.899 Other long term (current) drug therapy
CPT/HCPCS: 99283; J7512